=== PATIENT | female | born 1970 | race Caucasian/White ===

== ENCOUNTER → 2018-07-19 | Day surgery (SDC) | payer OTHER ==
[2018-07-18 14:22] LABS: BASOPHILS # (AUTO) 0.1 (0.0-0.1); BASOPHILS % 0.6 % (0.0-1.0); EOSINOPHILS # (AUTO) 0.1 (0.0-0.4); EOSINOPHILS % 1.3 % (0.0-6.0); HEMATOCRIT 40.5 % (34.2-44.1); HEMOGLOBIN 13.4 g/dL (12.0-16.0); LYMPHOCYTES # (AUTO) 2.6 (1.0-3.2); LYMPHOCYTES % 32.4 % (18.0-39.1); MEAN CORPUSCULAR HEMOGLOBIN 28.1 pg (28-32); MEAN CORPUSCULAR HGB CONC 33.1 g/dL (31-35); MEAN CORPUSCULAR VOLUME 84.9 fL (81-99); MONOCYTES # (AUTO) 0.6 (0.2-0.8); MONOCYTES % 7.3 % (4.4-11.3); NEUTROPHILS # (AUTO) 4.6 (2.1-6.9); NEUTROPHILS % 57.5 % (38.7-80.0); PLATELET COUNT 286 x10e3/uL (140-360); RED BLOOD COUNT 4.77 x10e6/uL (3.6-5.1); RED CELL DISTRIBUTION WIDTH 12.5 % (11.7-14.4)
[~2018-07-19] MED LIST: ACYCLOVIR800 MG PO; AMLODIPINE BESY10 MG PO; CLONIDINE HCL0.2 MG PO; KETAMINE HCL INJ 50 MG/ML 10 ML VIAL ONE; LEVSIN0.125 MG PO; LOSARTAN-HCTZ1 EAC2 PO; MIDAZOLAM HCL 2 MG/2 ML VIAL ONE; PANTOPRAZOLE SO40 MG PO; PROPOFOL IV EMULSION 10 MG/ML 20 ML VIAL ONE; ZEBETA10 MG PO
--- OUTSIDE RECORDS SUMMARY | 2018-07-19 12:20 | XMS REPORT | Clinical Summary ---
Author Author [facility] Organization [facility] Address Unknown Phone Unavailable Care Team Providers Care Partridge Farmer Name Role Phone Asked, No Pcp PCP Unavailable Allergies Comments Active Allergy Reactions Severity Noted Date Sob, and swelling Nebivolol Rash Low 10/15/2017 Sob, swelling Metoprolol Tartrate Rash Low 10/15/2017 Medications End Date Status Medication Sig Dispensed Refills Start Date Active clonIDINE HCl (CATAPRES) Take 0.2 mg 0 0.2 MG tablet by mouth 3 (three) times a day. Active traMADol (ULTRAM) 50 mg Take 50 mg by 0 tablet mouth 4 (four) times a day as needed for moderate pain. Active acyclovir (ZOVIRAX) 800 Take 800 mg 0 MG tablet by mouth daily. Active cyclobenzaprine Take 10 mg by 0 (FLEXERIL) 10 mg tablet mouth 3 (three) times a day as needed for muscle spasms. 10/17/2017 Discontinued verapamil (CALAN) 120 MG Take 300 mg 0 tablet by mouth daily. 11/16/2017 atorvastatin (LIPITOR) 40 Take 1 tablet 30 tablet 0 MG tablet (40 mg total) 8 by mouth nightly for 30 days. 11/17/2017 bisoprolol (ZEBETA) 10 MG Take 1 tablet 30 tablet 0 tablet (10 mg total) 8 by mouth daily for 30 days. 11/16/2017 NIFEdipine XL (PROCARDIA Take 1 tablet 60 tablet 0 XL) 60 MG 24 hr tablet (60 mg total) 8 by mouth 2 (two) times a day for 30 days. 11/17/2017 aspirin 81 mg chewable Chew 1 tablet 30 tablet 0 tablet (81 mg total) 8 daily for 30 days. 11/17/2017 clopidogrel (PLAVIX) 75 Take 1 tablet 30 tablet 0 201 mg tablet (75 mg total) 8 by mouth daily for 30 days. Active Problems Problem Noted Date Chest pain 10/15/2017 NSTEMI (non-ST elevated myocardial infarction) 10/15/2017 Encounters Care Team Description Date Type Specialty Leanne Lo MD Cv left heart cath w lv gram cors [59051 (CPT)] 10/16/2017 Surgery Procedural Cardiology Neptali Benson MD NSTEMI (non-ST elevated myocardial infarction) (Primary Dx) 10/15/2017 [facility] General Internal Medicine - Encounter 10/17/2017 after 07/18/2017 Social History Date Tobacco Use Types Packs/Day Years Used Never Smoker Smokeless Tobacco: Never Used Alcohol Use Drinks/Week oz/Week Comments No Sex Assigned at Date Recorded Not on file Industry Job Start Date Occupation Not on file Not on file Not on file Travel End Travel History Travel Start No recent travel history available. Last Filed Vital Signs Time Taken Vital Sign Reading 10/17/2017 8:19 AM [employer] Blood Pressure 134/93 10/17/2017 8:19 AM [employer] Pulse 64 10/17/2017 8:19 AM [employer] Temperature 36.4 C (97.5 F) 10/17/2017 5:50 AM [employer] Respiratory Rate 19 10/17/2017 8:19 AM [employer] Oxygen Saturation 95% - Inhaled Oxygen - Concentration 10/15/2017 2:06 PM [employer] Weight 159 kg (350 lb) 10/15/2017 2:06 PM [employer] Height 167.6 cm (5' 6") 10/15/2017 2:06 PM [employer] Body Mass Index 56.49 Plan of Treatment Health Maintenance Due Date Last Done Comments MMR VACCINES (1 of - 1973 Standard series) VARICELLA VACCINES (1 of 1985 2 - 2-dose adolescent series) CERVICAL CANCER SCREENING 1993 INFLUENZA VACCINE 03/21/2018 HEPATITIS B VACCINES Aged Out No longer eligible based on patient's age to complete this topic IPV VACCINES Aged Out No longer eligible based on patient's age to complete this topic MENINGOCOCCAL VACCINE Aged Out No longer eligible based on patient's age to complete this topic Implants Device Identifier Shelf Expiration Date Model / Serial / Lot Implanted Type Area Manufactur er 06/20/2019 [id number] / / [id number] Device Vasclr Clsr Baln Cath 10ml Cardiovasc N/A: N/A ACCESS Lkng Syr 5fr Jay Mynxgrip - ular CLOSURE [id number] [employer]plants [employer] Implanted: 10/16/2017 (Quantity not on file) Procedures Comments Procedure Name Priority Date/Time Associated Diagnosis CV LEFT HEART CATH LV Routine 10/16/2017 GRAM WITH CORS 5:47 PM [employer]END[employer] ECHOCARDIOGRAM 2D Routine 10/15/2017 COMPLETE W MMODE SPECTRAL 4:08 PM [employer] ATTENDANT COLOR DOPPLER (55291) ECG 12-LEAD STAT 10/15/2017 8:27 AM [employer]ENDANT ZZESTIMATED GFR Routine 10/15/2017 3:37 AM [employer]ENDANT LIPID PANEL Routine 10/15/2017 3:37 AM [employer]END[employer] BASIC METABOLIC PANEL Routine 10/15/2017 3:37 AM [employer]ENDANT TROPONIN Timed 10/15/2017 3:37 AM [employer] ATTEND[employer] after 07/18/2017 Results * Cv labeler procedure (10/16/2017 5:47 PM [employer] ATTENDANT) Narrative Performed At Performing Organization Address City/State/Zipcode Phone Number [facility] [address] [place] [address] * Echocardiogram complete w contrast and 3D if needed (10/15/2017 4:08 PM [employer] ATTEND[employer]) Ao Root Diameter 3.10 cm [facility] AoV Area, Vmax 3.06 cm2 [facility] AoV Area, VTI 3.48 cm2 [facility] AoV Mean PG 4.60 mmHg [facility] AoV Peak PG 8.71 mmHg [facility] AoV Vmax 1.48 m/s [facility] AoV VTI 0.28 m [facility] IVS,d 0.91 0.6 - 1.2 cm [facility] IVS/LVPW,2D 0.81 [facility] Left Atrium Dimension 4.80 cm [facility] Anterior LV,d 5.43 cm [facility] LV EF,2D 63.35 % [facility] LV,s 3.88 cm [facility] LVOT area 4.12 cm2 [facility] LVOT Diam,S 2.29 cm [facility] LVOT Vmax 1.10 m/s [facility] LVOT VTI 0.24 m [facility] LVPWD,d 1.12 cm [facility] PV Pk Grad 4.14 mmHg [facility] PV VMAX 1.02 m/s [facility] RVSP (TR) 26.21 mmHg [facility] TR Vpeak 2.01 mm/s [facility] MV E A ratio 1.07 mmHg [facility] TR pk grad 16.21 mmHg [facility] E wave decelartion time 158.33 msec [facility] MV Peak A Tristan 0.79 m/s [facility] MV valve area p 1/2 4.79 cm2 [facility] method MV Peak E Tristan 0.85 m/s [facility] MV stenosis pressure 1/2 45.92 ms [facility] time AV LVOT peak gradient 4.86 mmHg [facility] Ascending aorta 3.31 cm [facility] RVSP 26.21 mmHg [facility] Ao Root Diameter 3.10 cm [facility] LV SYS VOL 65.20 ml [facility] LV BELTRAN VOL 142.83 ml [facility] LV SV Teich 2D 77.63 ml [facility] LV Vol s Teich PSAX 65.20 ml [facility] LVOT CO 6.79 l/min [facility] LVOT HR for LVOT CO 70.07 bpm [facility] AoV Vmn 1.02 [facility] IVS s 2D 1.28 [facility] LV FS Teich 2D 28.44 [facility] MV AE ratio 0.94 [facility] LV FS Cube 2D 28.44 [facility] LVOT Vmn 0.79 [facility] Aov area Vmn 3.19 cm2 [facility] LVOT mean grad 2.73 mmHg [facility] MAX Pred HR 174.40 [facility] 85 of MPHR 148.24 [facility] Calc MPHR 174.40 bpm [facility] IVS pct thck PLAX 40.37 % [facility] LV SV Cube 2D 101.15 ml [facility] LV vol d cube 2D 159.67 ml [facility] LV vol s cube 2D 58.52 ml [facility] LVPW pct thck PLAX 38.72 % [facility] LVPW s PLAX 1.56 cm [facility] MV Decel slope 5.35 m/s2 [facility] Pred Exer Dur R1 9.46 [facility] Pred METS R1 8.77 [facility] Velocity Ratio (V1/V2) 0.74 m/s [facility] EF 54.35 % [facility] E/A ratio 1.08 [facility] BSA 2.72 m2 [facility] Narrative Performed At [facility] The left ventricle chamber size is normal. Left Ventricular ejection fraction is 55 - 60%. Left atrium size is moderately dilated. Performing Organization Address City/[facility]/[place] Phone Number [facility] [address] [place] [address] * ECG 12 lead (10/15/2017 8:27 AM [employer] ATTENDANT) Ventricular rate 78 [facility]USE Atrial rate 78 [facility] NM interval 172 [facility] QRSD interval 80 [facility] QT interval 378 [facility] QTC interval 430 [facility] P axis 1 66 [facility] QRS axis 1 -18 [facility]USE T wave axis 68 [facility] MUSE EKG impression Normal sinus rhythm-Normal [facility] MUSE ECG- Performing Organization Address City/[facility]/[place] Phone Number [facility] MUSE [address] [place] [address] * Estimated GFR (10/15/2017 3:37 AM [employer] ATTENDANT) GFR Non Af Amer >90 mL/min/1.73 m2 [facility] DEPARTMENT OF PATHOLOGY AND [employer] MEDICINE GFR Af Amer >90 mL/min/1.73 m2 [facility] DEPARTMENT OF Comment: PATHOLOGY AND Chronic kidney disease: <60 GENOMIC MEDICINE mL/min/1.73m2 Kidney failure: <15 mL/min/1.73m2 The estimated GFR is calculated from the IDMS-traceable Modification of Diet in Renal Disease Equation. The accuracy of the calculation is poor when the creatinine is normal. Calculated values >90 mL/min/1.73m2 are not reported. This equation has not been validated in children (<18 years), women, the elderly (>70 years), or ethnic groups other than Caucasians and Americans. Specimen Plasma specimen Performing Organization Address City/[facility]/Zipcode Phone Number [facility] DEPARTMENT OF [address] [place] [address] PATHOLOGY AND GENOMIC MEDICINE * Troponin (10/15/2017 3:37 AM [employer] ATTENDANT) Troponin 3.63 (HH) 0.00 - 0.60 ng/mL [facility] DEPARTMENT OF Comment: PATHOLOGY AND 0.11 - 1.49 GENOMIC MEDICINE ng/mlMay indicate increased risk of acute coronary syndrome. >=1.5 ng/ml Consistent with acute myocardial infarction. The diagnostic value of a single normal or non-diagnostic result is questionable.Serial samples at 2-6 hour intervals are required to rule out acute myocardial injury. Results called to and read back by SONYA COLLAZO RN AT 04:26010/15/2017 BY ISAIAH. Specimen Plasma specimen Performing Organization Address City/[facility]/[place] Phone Number [facility] [address] [place] [address] PATHOLOGY AND GENOMIC MEDICINE * Lipid panel (10/15/2017 3:37 AM [employer] ATTENDANT) Cholesterol 190 120 - 200 mg/dL [facility] DEPARTMENT OF PATHOLOGY AND GENOMIC MEDICINE Triglycerides 119 50 - 150 mg/dL [facility] DEPARTMENT OF PATHOLOGY AND GENOMIC MEDICINE HDL cholesterol 48 40 - 60 mg/dL [facility] DEPARTMENT OF PATHOLOGY AND GENOMIC MEDICINE LDL cholesterol 142Comment: Result obtained by mg/dL [facility] DEPARTMENT OF direct LDL measurement PATHOLOGY AND [employer] MEDICINE Lipid panel See below [facility] DEPARTMENT OF interpretation Comment: PATHOLOGY AND Total Cholesterol GENOMIC MEDICINE (mg/dL) LDL Cholesterol (mg/dL) <200 Desirable <100 Optimal 200-239Borderline -[id number] 29Near or above optimal >=240High 130-159Borderline- high 160-189High >=190Very high HDL Cholesterol (mg/dL) Triglycerides (mg/dL) <40Low <150 Normal >=60 High 150-199Borderline- high 200-499High >=500Very high Risk Catergories that modify LDL goals. Risk Catergories LDL goal (mg/dL) CHD and CHD risk equivalent <100 (10-year risk >20%) Multiple (2+) risk factors <130 (10-year risk=<20%) 0-1 risk factors <160 (<10-year risk) Defining levels of lipids in metabolic syndrome Triglycerides >=150 mg/dL HDL Cholesterol Men <40 mg/dL Women <50 mg/dL Non-HDL cholesterol is a second target for therapy in persons with high triglycerides (>=200 mg/dL) Specimen Plasma specimen Performing Organization Address City/State/Zipcode Phone Number [facility] [address] [place] [address] PATHOLOGY AND GENOMIC MEDICINE * Basic metabolic panel (10/15/2017 3:37 AM [employer] ATTENDANT) Sodium 138 135 - 150 mEq/L [facility] DEPARTMENT OF PATHOLOGY AND GENOMIC MEDICINE Potassium 3.9 3.5 - 5.0 mEq/L [facility] DEPARTMENT OF PATHOLOGY AND GENOMIC MEDICINE Chloride 105 100 - 109 mEq/L [facility] OF PATHOLOGY AND GENOMIC MEDICINE CO2 24 24 - 32 mmol/L [facility] DEPARTMENT OF PATHOLOGY AND GENOMIC MEDICINE Anion gap 9 7 - 15 mEq/L [facility] DEPARTMENT OF Comment: PATHOLOGY AND Starting from November [facility] MED[facility]INE , anion gap calculation no longer incorporates potassium. Please note the change. BUN 13 7 - 18 mg/dL [facility] DEPARTMENT OF PATHOLOGY AND GENOMIC MEDICINE Creatinine 0.7 (L) 0.8 - 1.5 mg/dL [facility] DEPARTMENT OF PATHOLOGY AND GENOMIC MEDICINE Glucose 93 65 - 100 mg/dL [facility] DEPARTMENT OF PATHOLOGY AND GENOMIC MEDICINE Calcium 8.7 8.6 - 10.7 mg/dL [facility] DEPARTMENT OF PATHOLOGY AND GENOMIC MEDICINE Specimen Plasma specimen Performing Organization Address City/State/Zipcode Phone Number [facility] DEPARTMENT OF [facility] [place] [address] PATHOLOGY AND GENOMIC MEDICINE after 07/18/2017 Insurance Payer Benefit Subscriber ID Type Phone Address Plan / Group [facility] xxxxxxxxx HMO/PPO THCARE CHOICE/CHO ICE + DR beck ([place]) [place] [address] Advance Directives Patient has advance care planning documents on file. For more information, ashok gant contact: Hung Rios [address] [place] [address]
[2018-07-19 14:25] VITALS: BP 118/62
--- NOTE | 2018-07-19 16:55 | Operative Report ---
DATE OF PROCEDURE: July 19, 2018 PROCEDURE PERFORMED: Colonoscopy. PREOPERATIVE DIAGNOSES 1. History of colon polyps. 2. Family history of colon cancer. POSTOPERATIVE DIAGNOSIS: Colon polyps. PREOP MEDICATIONS: Consisted of general anesthesia. PROCEDURE: Using the Olympus [email or web address] video colonoscope, this was inserted into the patient's rectum and advanced without difficulty to the level of the cecum. The colon was studied from that level back down to the rectum. In the ascending colon there is a 5 mm benign polyp which was removed with the hot biopsy forceps. In the sigmoid colon was a 1 cm size sessile polyp removed with the electrical snare cautery and also a 4 mm sessile benign polyp also in the sigmoid colon removed with the hot biopsy forceps. The rest of the colon appeared to be normal. The colonoscope was withdrawn from the patient's rectum, and the procedure was ended. In conclusion, we have 3 benign polyps which were removed either with the electrical snare cautery or the hot biopsy forceps. Job#: [id number]
== END | disposition home or self-care (01) ==
LOC: OR 11:40
PROVIDERS: ATTEND Internal Medicine Gastroenterology
DX: Z09 Encounter for follow-up examination after completed treatment for conditions other than malignant neoplasm (principal); D12.2 Benign neoplasm of ascending colon; D12.5 Benign neoplasm of sigmoid colon; K58.9 Irritable bowel syndrome, unspecified; G47.33 Obstructive sleep apnea (adult) (pediatric); I25.2 Old myocardial infarction; I10 Essential (primary) hypertension; E78.5 Hyperlipidemia, unspecified; M54.2 Cervicalgia; M54.9 Dorsalgia, unspecified; Z88.8 Allergy status to other drugs, medicaments and biological substances; Z01.812 Encounter for preprocedural laboratory examination; Z79.82 Long term (current) use of aspirin; Z79.02 Long term (current) use of antithrombotics/antiplatelets; Z68.43 Body mass index [BMI] 50.0-59.9, adult; Z98.61 Coronary angioplasty status; Z80.0 Family history of malignant neoplasm of digestive organs
CPT/HCPCS: 36415; 45384; 45385; 81025; 85025; J2250; J2704